=== PATIENT | male | born 1980 | race Caucasian/White ===

== ENCOUNTER 2024-07-28 06:24 | Day surgery (SDC) | payer OTHER ==
[2024-07-28] VITALS (225 sets, daily range): BP systolic 77–146; BP diastolic 53–100
[~2024-07-28] VITALS: Ht 190.5 cm; Wt 79.0 kg
[~2024-07-28 06:24] MED LIST: SODIUM CHLORIDE 0.9% 1,000 ML IV PRN
[2024-07-28] MEDS ORDERED: FAMOTIDINE 20 MG/TAB PO PRN (07:30)
[2024-07-28] MEDS ORDERED: PANTOPRAZOLE SODIUM Sesquihydr 40 MG/TAB PO PRN (07:30)
[2024-07-28] MEDS ORDERED: cloNIDine HCL 0.1 MG/TAB PO PRN (07:30)
[2024-07-28] MEDS ORDERED: CYANOCOBALAMIN 500 MCG/TAB ( B12) PO PRN (07:30)
[2024-07-28] MEDS ORDERED: SCOPOLAMINE 1.5 MG DIS TD PRN (07:30)
[2024-07-28] MEDS ORDERED: DEXMEDETOMIDINE HCL IN SODIUM 100 ML IV PRN (07:30)
[2024-07-28] MEDS ORDERED: ALBUTEROL SULFATE 2.5 MG VIAL IN PRN (07:30)
[2024-07-28] MEDS ORDERED: diazePAM 5 MG/TAB PO PRN ×2 (07:30→08:30)
[2024-07-28] MEDS ORDERED: LACTATED RINGER'S 1,000 ML IV PRN ×2 (07:30→09:35)
[2024-07-28] MEDS ORDERED: ASCORBIC ACID 4,000 MG in SODIUM CHLORIDE 0.9% 1,000 ML IV SCH (08:00)
[2024-07-28 08:32] LABS: BASO% 0.3 % (0-3); EOS% 2.5 % (0-8); HEMATOCRIT 40.7 % (39.0-50.0); HEMOGLOBIN 13.6 g/dl (14.0-18.0); IMMATURE GRANULOCYTES 0.1 % (0.0-5.0); LYMPH% 16.2 % (15-41); MEAN CELL VOLUME 92.7 fL CALC (80.0-100.0); MEAN CORPUSCULAR HGB CONC 33.4 g/dL CAL (32.0-36.0); MONO% 7.6 % (2-13); NEUT# 6.36 thou/uL (1.82-7.42); NEUT% 73.3 % (42-76); RED BLOOD COUNT 4.39 mill/uL (4.70-6.10); RED CELL DISTRI WIDTH 12.4 % (11.5-15.5)
[2024-07-28 08:40] LABS: ALBUMIN 4.1 g/dL (3.2-5.0); BILIRUBIN, TOTAL 0.5 mg/dL (0.2-1.3); CREATININE 0.8 mg/dL (0.7-1.3); POTASSIUM 4.2 mmol/l (3.5-5.1)
[2024-07-28] MEDS ORDERED: PROZAC40 MG PO (09:13)
[2024-07-28] MEDS ORDERED: NALTREXONE HCL 50 MG/TAB VT PRN (09:35)
[2024-07-28] MEDS ORDERED: PROPOFOL 100 ML IV PRN (09:35)
[2024-07-28] MEDS ORDERED: MIDAZOLAM HCL 2 MG/2 ML VIAL IV PRN ×3 (09:35→16:00)
[2024-07-28] MEDS ORDERED: LIDOCAINE HCL 1% (10MG/ML) 100 MG/10 ML MDV IV PRN (09:35)
[2024-07-28] MEDS ORDERED: OCTREOTIDE ACETATE 100 MCG/VIAL SDV SC PRN (09:35)
[2024-07-28] MEDS ORDERED: SUCCINYLCHOLINE CHLORIDE 20 MG/ML 10ML VIAL IV PRN (09:35)
[2024-07-28] MEDS ORDERED: PROPOFOL 10 MG/ML 100ML VIAL IV PRN (09:35)
[2024-07-28] MEDS ORDERED: cloNIDine HCL 0.1 MG/TAB VT PRN (09:35)
[2024-07-28] MEDS ORDERED: POTASSIUM CHLORIDE 20 MEQ/100 ML BAG IV PRN (09:35)
[2024-07-28] MEDS ORDERED: ONDANSETRON HCl 4 MG/2 ML SDV IV PRN ×3 (09:35→19:00)
[2024-07-28] MEDS ORDERED: diazePAM 5 MG/TAB VT PRN (09:35)
[2024-07-28] MEDS ORDERED: DiphenhydrAMINE HCL 50 MG/ML SDV IV PRN (09:35)
[2024-07-28] MEDS ORDERED: ROCURONIUM BROMIDE 10 MG/ML 5 ML VIAL IV PRN (09:35)
[2024-07-28] MEDS ORDERED: LIDOCAINE HCL 1% (10MG/ML) 100 MG/10 ML MDV VT PRN ×2 (09:35)
[2024-07-28] MEDS ORDERED: MAGNESIUM SULFATE HEPTAHYDRATE 100 ML IV PRN (09:35)
[2024-07-28] MEDS ORDERED: THIAMINE HCL 100 MG/ML 2ML VIAL IV PRN (09:35)
[2024-07-28] MEDS ORDERED: cloNIDine HYDROCHLORIDE 100 MCG/ML 10 ML INJ IV PRN (09:35)
[2024-07-28] MEDS ORDERED: STERILE WATER FOR IRRIGATION 1,000 ML BTL IR PRN (09:35)
[2024-07-28] MEDS ORDERED: SODIUM CHLORIDE 0.9% 1,000 ML IV PRN ×2 (09:40→15:55)
[2024-07-28] MEDS ORDERED: NALTREXONE50 MG PO (14:25)
[2024-07-28] MEDS ORDERED: CLONIDINE0.1 MG PO (14:27)
[2024-07-28] MEDS ORDERED: KLONOPIN2 MG PO (14:28)
[2024-07-28] MEDS ORDERED: PROMETHAZINE HCL 12.5 MG in SODIUM CHLORIDE 0.9% 50 ML IV PRN (19:00)
[2024-07-28] MEDS ORDERED: ACETAMINOPHEN 500 MG TAB PO PRN (19:00)
[2024-07-28] MEDS ORDERED: KETOROLAC TROMETHAMINE 30 MG/ML SDV IV PRN ×2 (19:00→20:15)
[2024-07-28] MEDS ORDERED: ACETAMINOPHEN 1,000 MG/100 ML VIAL IV PRN (19:00)
[2024-07-28] MEDS ORDERED: PROMETHAZINE HCL 25 MG in SODIUM CHLORIDE 0.9% 50 ML IV PRN (19:00)
[2024-07-28] MEDS ORDERED: HALOPERIDOL LACTATE 5 MG/ML SDV IV PRN ×3 (19:00→21:40)
[2024-07-28] MEDS ORDERED: GABAPENTIN 300 MG/CAP PO SCH (19:47)
[2024-07-28] MEDS ORDERED: diazePAM 10 MG/2 ML VIAL IV SCH (20:11)
[2024-07-28] MEDS ORDERED: PATIENT' OWN MED CONTROLLED 1 EA DOSE IV PRN (21:00)
[2024-07-28] MEDS ORDERED: LIDOCAINE 4 % PATCH TD SCH (21:34)
[2024-07-28] MEDS ORDERED: diazePAM 10 MG/2 ML VIAL IV PRN (21:35)
[2024-07-28] MEDS ORDERED: clonazePAM 1 MG/TAB PO PRN (23:00)
[2024-07-28] MEDS ORDERED: cloNIDine HCL 0.1 MG/TAB PO SCH (23:00)
[2024-07-29 02:36] VITALS: BP 121/58
[2024-07-29] MEDS ORDERED: clonazePAM 1 MG/TAB PO PRN ×2 (04:00→08:00)
[2024-07-29] MEDS ORDERED: cloNIDine HCL 0.1 MG/TAB PO PRN (04:00)
[2024-07-29] MEDS ORDERED: NALTREXONE HCL 50 MG/TAB PO SCH (04:00)
[2024-07-29] MEDS ORDERED: ACETAMINOPHEN 325 MG/TAB PO SCH (08:00)
[2024-07-29] MEDS ORDERED: cloNIDine HCL 0.1 MG/TAB PO SCH (08:00)
[2024-07-29] MEDS ORDERED: PANTOPRAZOLE SODIUM Sesquihydr 40 MG/TAB PO SCH (08:00)
[2024-07-29 08:07] VITALS: BP 149/78
[2024-07-29] MEDS ORDERED: MAGNESIUM OXIDE 400 MG/TAB PO PRN (09:00)
[2024-07-29] MEDS ORDERED: ACETAMINOPHEN 500 MG TAB PO PRN (09:00)
[2024-07-29] MEDS ORDERED: Cholecalciferol 2,000 UNIT/TAB PO PRN (09:00)
== END 2024-07-29 08:55 | disposition left against medical advice (07) | DRG 894 ==
LOC: ANR 06:24 → MS2 06:24 → ANR 07:00
PROVIDERS: ATTEND Anesthesiology Critical Care Medicine
DX: F11.20 Opioid dependence, uncomplicated (principal)
CPT/HCPCS: J1100; J1200; J1630; J2354; J2405; J2704; J3360; J3411; J3475; J3480; J3490